=== PATIENT | male | born 1965 | race American Indian/Alaskan Native ===

== ENCOUNTER 2020-04-09 10:06 | Emergency (ER) | payer SELFPAY ==
[2020-04-09 10:19] VITALS: BP 188/108
--- NOTE | 2020-04-09 10:29 | Emergency Department Report ---
ED Rash HPI - HPI Chief Complaint: Skin Rash Stated Complaint: PODANA ANNE-MARIE OR WALLACE Time Seen by Provider: 04/09/20 10:23 Other History: pt is a 54 yo male who presents to the ED with c/o a diffuse rash that began two nights ago. he states that two days ago he was working in his [employer] yard [employer]. he states that night when he got home he broke out in a rash and had severe itching. he states that he used a sock over his hand and scratched all over. he states that he went to the pharmacy but they recommended for him to see a provider. he has a PMHx of HTN, he states that he takes lisinopril but did not take it this morning. he states he does have a PCP. he denies any allergies to meds. ED Review of Systems ROS: Stated complaint: STORMY XIE OR WALLACE Other details as noted in HPI Comment: All other systems reviewed and negative ED Past Medical Hx - Past Medical History Previous Medical History?: Yes Hx Hypertension: Yes Hx Asthma: Yes Additional medical history: Eczema - Surgical History Past Surgical History?: No - Social History Smoking Status: Never Smoker Substance Use Type: None - Medications Home Medications: Home Medications Medication Instructions Recorded Confirmed Last Taken Type Cetirizine HCl [ZyrTEC 10mg cap] 10 mg PO DAILY #14 capsule 04/09/20 Unknown Rx Hydrocortisone [Hydrocortisone 1 applicatio TP BID #1 oint...g. 04/09/20 Unknown Rx 2.5% OINT] Prednisone [predniSONE 10 mg 10 mg PO .TAPER #1 tab.ds.pk 04/09/20 Unknown Rx (6-Day Pack, 21 Tabs)] diphenhydrAMINE [Benadryl CAP] 50 mg PO Q8HR PRN #14 capsule 04/09/20 Unknown Rx Rash Exam - Exam General: Vital signs noted. No distress. Alert and acting appropriately. HEENT: No Periorbital Edema, No Conjuctival Injection, No Chemosis, No Perioral Edema, No Tongue Edema, No Uvular Edema, No Compromised Airway Lungs: Yes Good Air Exchange, No Wheezes, No Ronchi, No Stridor, No Cough, No Labored Respirations, No Retractions, No Use of Accessory Muscles Skin: Yes Other (diffuse macules, vesicles present to the BUE/BLE, chest, abdomen, back, several areas of erythemas, some small areas of excoriations most likely from frequent scratching, no pustules, no necrosis, no skin denuding) ED Course Vital Signs 04/09/20 10:18 Temperature 99.4 F Pulse Rate 100 H Respiratory 20 Rate Blood Pressure 188/108 O2 Sat by Pulse 99 Oximetry ED Medical Decision Making - Medical Decision Making pt is a 54 yo male who presents to the ED with c/o a diffuse rash that began two nights ago. he states that two days ago he was working in his [employer]. he states that night when he got home he broke out in a rash and had severe itching. he states that he used a sock over his hand and scratched all over. he states that he went to the pharmacy but they recommended for him to see a provider. he has a PMHx of HTN, he states that he takes lisinopril but did not take it this morning. he states he does have a PCP. he denies any allergies to meds. vitals with elevated BP likely secondary to not taking his lisinopril, discussed with pt to please take his medication once he returned home and to follow up with his PCP for close BP management. on exam: diffuse macules, vesicles present to the BUE/BLE, chest, abdomen, back, several areas of erythemas, some small areas of excoriations most likely from frequent scratching, no pustules, no necrosis, no skin denuding. examination consistent with diffuse, significant poison anne-marie dermatitis. pt given prescription for hydrocortisone ointment, prednisone, benadryl, and zyrtec. advised pt to please use medication as prescribed. avoid scratching. follow up with a primary care doctor. use calamine lotion. take an oatmeal bath. shower in cool water. please take your blood pressure medication as prescribed. eat a low sodium diet. incorporate daily exercise. return to the emergency room for any new or worsening symptoms. Critical care attestation.: If time is entered above; I have spent that time in minutes in the direct care of this critically ill patient, excluding procedure time. ED Disposition Clinical Impression: Poison anne-marie dermatitis Disposition: - TO HOME OR SELFCARE Is pt being admited?: No Does the pt Need Aspirin: No Condition: Stable Instructions: Poison Anne-Marie (ED) Additional Instructions: please use medication as prescribed. avoid scratching. follow up with a primary care doctor. use calamine lotion. take an oatmeal bath. shower in cool water. please take your blood pressure medication as prescribed. eat a low sodium diet. incorporate daily exercise. return to the emergency room for any new or worseni ng symptoms. Prescriptions: diphenhydrAMINE [Benadryl CAP] 50 mg PO Q8HR PRN #14 capsule PRN Reason: itching Hydrocortisone [Hydrocortisone 2.5% OINT] 1 applicatio TP BID #1 oint...g. Prednisone [predniSONE 10 mg (6-Day Pack, 21 Tabs)] 10 mg PO .TAPER #1 tab.ds.pk Cetirizine HCl [ZyrTEC 10mg cap] 10 mg PO DAILY #14 capsule Referrals: your, primary care doctor [Other] - 2-3 Days Time of Disposition: 10:25 Print Language: INDONESIAN
== END 2020-04-09 10:50 | disposition home or self-care (01) ==
LOC: EDBD → ED 10:06
DX: L23.7 Allergic contact dermatitis due to plants, except food (principal); I10 Essential (primary) hypertension; J45.909 Unspecified asthma, uncomplicated; Z79.899 Other long term (current) drug therapy
CPT/HCPCS: 99282